=== PATIENT | female | born 1995 | race Hispanic/Latino ===

== ENCOUNTER 2021-02-12 23:37 | Emergency (ER) | payer OTHER ==
[~2021-02-12] VITALS: Ht 160 cm; Wt 62.3 kg
[2021-02-12 23:39] VITALS: BP 125/70
== END 2021-02-13 02:56 | disposition home or self-care (01) ==
LOC: M ED 23:37
DX: R11.10 Vomiting, unspecified (principal); F17.290 Nicotine dependence, other tobacco product, uncomplicated

== ENCOUNTER 2021-09-20 10:29 | Emergency (ER) | payer OTHER ==
[~2021-09-20] VITALS: Ht 157.5 cm; Wt 61.9 kg
[2021-09-20] MEDS ORDERED: CIPROFLOXACIN 400 MG in IV 1 EA IV ONE (12:30)
[2021-09-20 13:03] LABS: HEMATOCRIT 39.8 % (36.0-47.0); HEMOGLOBIN 13.9 g/dl (12.0-15.5); MEAN CORPUSCULAR HGB CONC 34.9 g/dl (32.0-36.5); MEAN CORPUSCULAR VOLUME 85.8 fl (80.0-96.0); PLATELET COUNT, AUTOMATED 180 10^3/uL (150-450); RED BLOOD COUNT 4.64 10^6/uL (4.00-5.40); WHITE BLOOD COUNT 5.6 10^3/uL (4.0-10.0)
[2021-09-20] MEDS ORDERED: ACETAMINOPHEN TAB 650MG DOSE (2X325MG) PO ONE (13:10)
[2021-09-20 13:24] LABS: ATYPICAL LYMPH 4 % (0-5); EOSINOPHILS 3 % (0-3); LYMPHOCYTES 17 % (16-44); MONOCYTES 5 % (0-5); NEUTROPHILS 69 % (28-66)
[2021-09-20 13:25] LABS: GIANT PLATELETS 1+; PLATELET ESTIMATE NORMAL (NORMAL)
[2021-09-20 13:52] LABS: ALBUMIN 4.1 GM/DL (3.2-5.2); ALT/SGPT 25 U/L (12-78); BILIRUBIN,DIRECT < 0.1 MG/DL (0.0-0.2); BILIRUBIN,TOTAL 0.6 MG/DL (0.2-1.0); BLOOD UREA NITROGEN 13 MG/DL (7-18); CARBON DIOXIDE LEVEL 30 MEQ/L (21-32); CHLORIDE LEVEL 103 MEQ/L (98-107); CREATININE FOR GFR 0.65 MG/DL (0.55-1.30); GLOMERULAR FILTRATION RATE > 60.0 (>60); GLUCOSE, FASTING 89 MG/DL (70-100); LIPASE 39 U/L (73-393); SODIUM LEVEL 137 MEQ/L (136-145); TOTAL PROTEIN 7.4 GM/DL (6.4-8.2)
[2021-09-20 14:00] VITALS: BP 103/60
[2021-09-20] MEDS ORDERED: CIPR250T26 PO (14:21)
== END 2021-09-20 14:48 | disposition home or self-care (01) ==
LOC: M ED 10:29
DX: N39.0 Urinary tract infection, site not specified (principal)
CPT/HCPCS: 74176; 80048; 80076; 81001; 83690; 84702; 85025; 87086; 93041; 96365; 99284; J0744